=== PATIENT | male | born 1965 | race Caucasian/White ===

== ENCOUNTER 2016-09-27 23:05 | Emergency (ER) | payer OTHER ==
--- NOTE | 2016-09-27 23:27 | EDM.PDOC ---
ED HPI GENERAL MEDICAL PROBLEM - General Chief Complaint: Skin Complaint Stated Complaint: MEDICAL CLEARANCE Time Seen by Provider: 09/27/16 23:22 - History of Present Illness INITIAL COMMENTS - FREE TEXT/NARRATIVE: HISTORY AND PHYSICAL: History of present illness: Patient is 51-year-old white male in custody of law enforcement who presents for medical clearance patient is a small area of erythema with an excoriated area his left lower abdomen for one week he does not recall any specific trauma she may have been related to an insect bite and red slightly swollen and one week no fever chills nausea vomiting or other concerns Review of systems: As per history of present illness and below otherwise all systems reviewed and negative. Past medical history: As per history of present illness and as reviewed below otherwise noncontributory. Surgical history: As per history of present illness and as reviewed below otherwise noncontributory. Social history: No reported history of drug or alcohol abuse. Family history: As per history of present illness and as reviewed below otherwise noncontributory. Physical exam: HEENT: Atraumatic, normocephalic, pupils reactive, negative for conjunctival pallor or scleral icterus, mucous membranes moist, throat clear, neck supple, nontender, trachea midline. Lungs: Clear to auscultation, breath sounds equal bilaterally, chest nontender. Heart: S1S2, regular, negative for clicks, rubs, or JVD. Abdomen: Soft, nondistended, patient is a small area approximately 4 cm in diameter with a central excoriated area of his left lower abdomen mild erythema mild warmth but no significant induration or fluctuance. Negative for masses or hepatosplenomegaly. Negative for costovertebral tenderness. Pelvis: Stable nontender. Genitourinary: Deferred. Rectal: Deferred. Extremities: Atraumatic, negative for cords or calf pain. Neurovascular unremarkable. Neuro: Awake, alert, oriented. Cranial nerves II through XII unremarkable. Cerebellum unremarkable. Motor and sensory unremarkable throughout. Exam nonfocal. Diagnostics: None Therapeutics: None Impression: #1 cellulitis Definitive disposition and diagnosis as appropriate pending reevaluation and review of above. left lower abdomen Pain Score (Numeric/FACES): 5 - Related Data Allergies Allergy/AdvReac Type Severity Reaction Status Date / Time Penicillins Allergy Other Verified 09/27/16 23:13 Home Meds: Home Meds . [No Known Home Meds] 09/27/16 [History] Past Medical History HEENT History: Reports: None Cardiovascular History: Reports: None Respiratory History: Reports: None Gastrointestinal History: Reports: None Genitourinary History: Reports: None Musculoskeletal History: Reports: None Neurological History: Reports: None Psychiatric History: Reports: None Endocrine/Metabolic History: Reports: None Hematologic History: Reports: None Oncologic (Cancer) History: Reports: None Dermatologic History: Reports: None - Infectious Disease History Infectious Disease History: Reports: None Social & Family History - Family History Family Medical History: Noncontributory - Tobacco Use Smoking Status *Q: Current Every Day Smoker Years of Tobacco use: 4 Packs/Tins Daily: 0.5 - Caffeine Use Caffeine Use: Reports: Coffee, Soda - Recreational Drug Use Recreational Drug Use: No ED ROS GENERAL - Review of Systems Review Of Systems: ROS reveals no pertinent complaints other than HPI. ED EXAM, SKIN/RASH Exam: See Below (See dictation) Course - Vital Signs Last Recorded V/S: Last Vital Signs Temp 36.1 C 09/27/16 23:14 Pulse 89 09/27/16 23:14 Resp 16 09/27/16 23:14 BP 131/91 H 09/27/16 23:14 Pulse Ox 96 09/27/16 23:14 Departure - Departure Time of Disposition: 23:26 Disposition: Home, Self-Care 01 Condition: good Clinical Impression: Cellulitis, Medical clearance for incarceration - Discharge Information Forms: ED Department Discharge Additional Instructions: The following information is given to patients seen in the emergency department who are being discharged to home. This information is to outline your options for follow-up care. We provide all patients seen in our emergency department with a follow-up referral. The need for follow-up, as well as the timing and circumstances, are variable depending upon the specifics of your emergency department visit. If you don't have a primary care physician on staff, we will provide you with a referral. We always advise you to contact your personal physician following an emergency department visit to inform them of the circumstance of the visit and for follow-up with them and/or the need for any referrals to a consulting specialist. The emergency department will also refer you to a specialist when appropriate. This referral assures that you have the opportunity for followup care with a specialist. All of these measure are taken in an effort to provide you with optimal care, which includes your followup. Under all circumstances we always encourage you to contact your private physician who remains a resource for coordinating your care. When calling for followup care, please make the office aware that this follow-up is from your recent emergency room visit. If for any reason you are refused follow-up, please contact the [facility] emergency department at and asked to speak to the emergency department charge nurse. Bactrim clindamycin as prescribed followup primary medical doctor in one to 2 days return as needed as discussed
[2016-09-28 01:22] VITALS: BP 123/79
== END 2016-09-27 23:50 | disposition home or self-care (01) ==
LOC: MW.ED 23:05
DX: L03.311 Cellulitis of abdominal wall (principal); F17.210 Nicotine dependence, cigarettes, uncomplicated; Z88.0 Allergy status to penicillin
CPT/HCPCS: 99283

== ENCOUNTER 2019-02-28 22:59 | Emergency (ER) | payer SELFPAY ==
[2019-02-28] MEDS ORDERED: prednisoLONE Soln 15 MG/5 ML UD Cup PO ONE (23:09)
--- NOTE | 2019-02-28 23:14 | EDM.PDOC ---
ED HPI GENERAL MEDICAL PROBLEM - General Stated Complaint: NUMBNESS ON LEFT SIDE Time Seen by Provider: 02/28/19 23:03 - History of Present Illness INITIAL COMMENTS - FREE TEXT/NARRATIVE: HISTORY AND PHYSICAL: History of present illness: Patient 53-year-old male who presents with a concern of left facial paralysis that started yesterday he has no other neurological signs or symptoms he does have some postauricular discomfort on the left also. Review of systems: As per history of present illness and below otherwise all systems reviewed and negative. Past medical history: As per history of present illness and as reviewed below otherwise noncontributory. Surgical history: As per history of present illness and as reviewed below otherwise noncontributory. Social history: No reported history of drug or alcohol abuse. Family history: As per history of present illness and as reviewed below otherwise noncontributory. Physical exam: HEENT: Atraumatic, normocephalic, pupils reactive, negative for conjunctival pallor or scleral icterus, mucous membranes moist, throat clear, neck supple, nontender, trachea midline. Lungs: Clear to auscultation, breath sounds equal bilaterally, chest nontender. Heart: S1S2, regular, negative for clicks, rubs, or JVD. Abdomen: Soft, nondistended, nontender. Negative for masses or hepatosplenomegaly. Negative for costovertebral tenderness. Pelvis: Stable nontender. Genitourinary: Deferred. Rectal: Deferred. Extremities: Atraumatic, negative for cords or calf pain. Neurovascular unremarkable. Neuro: Awake, alert, oriented. Patient noted a peripheral seventh nerve palsy with fairly dense paralysis of his left face. No other neurological signs or symptoms motor and sensory otherwise are normal throughout as is other cranial nerves. Diagnostics: None Therapeutics: Valtrex 500 mg by mouth prednisolone 25 mg by mouth Impression: Thornton's palsy Definitive disposition and diagnosis as appropriate pending reevaluation and review of above. - Related Data Allergies Allergy/AdvReac Type Severity Reaction Status Date / Time Penicillins Allergy Other Verified 09/27/16 23:13 Home Meds: Home Meds . [No Known Home Meds] 09/27/16 [History] Past Medical History HEENT History: Reports: None Cardiovascular History: Reports: None Respiratory History: Reports: None Gastrointestinal History: Reports: None Genitourinary History: Reports: None Musculoskeletal History: Reports: None Neurological History: Reports: None Psychiatric History: Reports: None Endocrine/Metabolic History: Reports: None Hematologic History: Reports: None Oncologic (Cancer) History: Reports: None Dermatologic History: Reports: None - Infectious Disease History Infectious Disease History: Reports: None Social & Family History - Family History Family Medical History: Noncontributory - Caffeine Use Caffeine Use: Reports: Coffee, Soda ED ROS GENERAL - Review of Systems Review Of Systems: ROS reveals no pertinent complaints other than HPI. ED EXAM, GENERAL - Physical Exam Exam: See Below (See dictation) Course - Orders/Labs/Meds Orders: Active Orders 24 hr Category Date Time Status prednisoLONE [OraPred 15 MG/5ML Soln] Med 02/28/19 23:09 Once 20 mg PO ONETIME ONE valACYclovir [Valtrex] Med 02/28/19 23:15 Active 500 mg PO DAILY Medication Orders Prednisolone (Orapred 15 Mg/5ml Soln) 20 mg PO ONETIME ONE Stop: 02/28/19 23:10 Valacyclovir HCl (Valtrex) 500 mg PO DAILY CHYNA Meds: Medications Generic Name Dose Route Start Last Admin Trade Name Freq PRN Reason Stop Dose Admin Prednisolone 20 mg 02/28/19 23:09 Orapred 15 Mg/5ml Soln PO 02/28/19 23:10 ONETIME ONE Valacyclovir HCl 500 mg 02/28/19 23:15 Valtrex PO DAILY CHYNA Departure - Departure Time of Disposition: 23:13 Disposition: Home, Self-Care 01 Condition: Good Clinical Impression: Thornton's palsy - Discharge Information Referrals: PCP,None [Primary Care Provider] - Additional Instructions: The following information is given to patients seen in the emergency department who are being discharged to home. This information is to outline your options for follow-up care. We provide all patients seen in our emergency department with a follow-up referral. The need for follow-up, as well as the timing and circumstances, are variable depending upon the specifics of your emergency department visit. If you don't have a primary care physician on staff, we will provide you with a referral. We always advise you to contact your personal physician following an emergency department visit to inform them of the circumstance of the visit and for follow-up with them and/or the need for any referrals to a consulting specialist. The emergency department will also refer you to a specialist when appropriate. This referral assures that you have the opportunity for followup care with a specialist. All of these measure are taken in an effort to provide you with optimal care, which includes your followup. Under all circumstances we always encourage you to contact your private physician who remains a resource for coordinating your care. When calling for followup care, please make the office aware that this follow-up is from your recent emergency room visit. If for any reason you are refused follow-up, please contact the [facility] emergency department at and asked to speak to the emergency department charge nurse. Valtrex prednisolone as prescribed eyepatch at night natural tears during day as directed follow-up primary medical doctor as discussed return as needed as discussed - My Orders Last 24 Hours: My Active Orders 02/28/19 23:09 prednisoLONE [OraPred 15 MG/5ML Soln] 20 mg PO ONETIME ONE 02/28/19 23:15 valACYclovir [Valtrex] 500 mg PO DAILY - Assessment/Plan Last 24 Hours: My Active Orders 02/28/19 23:09 prednisoLONE [OraPred 15 MG/5ML Soln] 20 mg PO ONETIME ONE 02/28/19 23:15 valACYclovir [Valtrex] 500 mg PO DAILY
[2019-02-28] MEDS ORDERED: valACYclovir 500 MG Tab PO SCH (23:15)
[2019-02-28 23:23] VITALS: BP 152/98; PULSE 93
== END 2019-02-28 23:28 | disposition home or self-care (01) ==
LOC: MW.ED 22:59
DX: G51.0 Bell's palsy (principal); Z88.0 Allergy status to penicillin
CPT/HCPCS: 99284; A9270; 99282

== ENCOUNTER 2019-09-20 19:32 | Observation (INO) | payer SELFPAY ==
--- NOTE | 2019-09-20 19:46 | EDM.PDOC ---
ED HPI GENERAL MEDICAL PROBLEM - General Chief Complaint: Abdominal Pain Stated Complaint: ABDOMINAL PAIN Time Seen by Provider: 09/20/19 19:39 Source of Information: Reports: Patient History Limitations: Reports: No Limitations - History of Present Illness INITIAL COMMENTS - FREE TEXT/NARRATIVE: This is a 54-year-old gentleman with left lower quadrant pain starting at 7:30 PM 48 hours ago. Patient denies chills and fever, diarrhea, nausea and vomiting. Still denies constipation or any new to the area. Patient has never had diverticulitis or any surgery on his abdomen. States the pain is a 7 out of 10 when he lays down and when he walks or moves it goes up to a 9 or 10 out of 10. 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 Denies: Confusion, Chest Pain, Cough, Diaphoresis, Fever/Chills, Headaches, Malaise, Rash, Seizure, Shortness of Breath, Syncope Abdomen Pain Score (Numeric/FACES): 7 - Related Data Allergies Allergy/AdvReac Type Severity Reaction Status Date / Time Penicillins Allergy Other Verified 09/20/19 19:44 Home Meds: Home Meds . [No Known Home Meds] 09/27/16 [History] Past Medical History HEENT History: Reports: None Cardiovascular History: Reports: None Respiratory History: Reports: None Gastrointestinal History: Reports: None Genitourinary History: Reports: None Musculoskeletal History: Reports: None Neurological History: Reports: None Psychiatric History: Reports: None Endocrine/Metabolic History: Reports: None Hematologic History: Reports: None Oncologic (Cancer) History: Reports: None Dermatologic History: Reports: None - Infectious Disease History Infectious Disease History: Reports: None - Past Surgical History HEENT Surgical History: Reports: Oral Surgery Social & Family History - Family History Family Medical History: Noncontributory - Caffeine Use Caffeine Use: Reports: Coffee, Soda ED ROS GENERAL - Review of Systems Review Of Systems: See Below Constitutional: Reports: No Symptoms HEENT: Reports: No Symptoms Respiratory: Reports: No Symptoms Cardiovascular: Reports: No Symptoms Endocrine: Reports: No Symptoms GI/Abdominal: Reports: Abdominal Pain, Anorexia : Reports: No Symptoms Musculoskeletal: Reports: No Symptoms Skin: Reports: No Symptoms Neurological: Reports: No Symptoms Psychiatric: Reports: No Symptoms Hematologic/Lymphatic: Reports: No Symptoms Immunologic: Reports: No Symptoms ED EXAM, GI/ABD - Physical Exam Exam: See Below Exam Limited By: No Limitations General Appearance: Alert, WD/WN, No Apparent Distress Eyes: Bilateral: Normal Appearance Ears: Normal External Exam, Normal Canal, Hearing Grossly Normal, Normal TMs Nose: Normal Inspection, Normal Mucosa, No Blood Throat/Mouth: Normal Inspection, Normal Lips, Normal Teeth, Normal Gums, Normal Oropharynx, No Airway Compromise Head: Atraumatic, Normocephalic Neck: Normal Inspection, Supple, Non-Tender, Full Range of Motion Respiratory/Chest: No Respiratory Distress, Lungs Clear, Normal Breath Sounds, No Accessory Muscle Use, Chest Non-Tender Cardiovascular: Normal Peripheral Pulses, Regular Rate, Rhythm, No Edema, No Gallop, No JVD, No Murmur, No Rub GI/Abdominal Exam: Guarding, Rebound, Tender (Left lower quadrant pain on palpation) (Male) Exam: Deferred Rectal (Males) Exam: Deferred Back Exam: Normal Inspection, Full Range of Motion Extremities: Normal Inspection, Normal Range of Motion, Non-Tender, No Pedal Edema, Normal Capillary Refill Neurological: Alert, Oriented, CN II-XII Intact, Normal Cognition, Normal Gait, Normal Reflexes, No Motor/Sensory Deficits Psychiatric: Normal Affect, Normal Mood Skin Exam: Warm, Dry, Intact, Normal Color, No Rash Lymphatic: No Adenopathy Course - Vital Signs Text/Narrative:: 54-year-old gentleman presents to the emergency room with left lower quadrant pain. Patient found to have colitis on CT scan. Patient has a white count of 14,000 with severe pain. Patient given pain medication and antibiotics in the emergency room. Patient will be admitted for observation IV fluids antibiotics and pain medication. I talked to the hospitalist who will admit the patient. Last Recorded V/S: Last Vital Signs Temp 98.5 F 09/20/19 21:15 Pulse 94 09/20/19 21:15 Resp 18 09/20/19 21:15 BP 120/87 05/16/20 21:15 Pulse Ox 96 09/20/19 21:15 - Orders/Labs/Meds Orders: Active Orders 24 hr Category Date Time Status metroNIDAZOLE/Normal Saline [Flagyl 500 MG in NS 100 ML Med 09/20/19 21:25 Active ] 500 mg Premix Bag 1 bag IV ONETIME Medication Orders Metronidazole 500 mg/ Premix 100 mls @ 100 mls/hr IV ONETIME ONE Stop: 09/20/19 22:24 Last Admin: 09/20/19 21:34 Dose: 100 mls/hr Labs: Laboratory Tests 09/20/19 09/20/19 09/20/19 Range/Units 19:50 19:50 20:45 WBC 14.61 H (4.0-11.0) K/uL RBC 6.19 H (4.50-5.90) M/uL Hgb 18.0 H (13.0-17.0) g/dL Hct 54.1 H (38.0-50.0) % MCV 87.4 (80.0-98.0) fL MCH 29.1 (27.0-32.0) pg MCHC 33.3 (31.0-37.0) g/dL RDW Std Deviation 41.4 (28.0-62.0) fl RDW Coeff of Denise 13 (11.0-15.0) % Plt Count 335 (150-400) K/uL MPV 9.90 (7.40-12.00) fL Neut % (Auto) 77.7 (48.0-80.0) % Lymph % (Auto) 14.9 L (16.0-40.0) % [place] % (Auto) 6.6 (0.0-15.0) % Eos % (Auto) 0.6 (0.0-7.0) % Baso % (Auto) 0.2 (0.0-1.5) % Neut # (Auto) 11.4 H (1.4-5.7) K/uL Lymph # (Auto) 2.2 (0.6-2.4) K/uL [place]aine # (Auto) 1.0 H (0.0-0.8) K/uL Eos # (Auto) 0.1 (0.0-0.7) K/uL Baso # (Auto) 0.0 (0.0-0.1) K/uL Nucleated RBC % 0.0 /100WBC Nucleated RBCs # 0 K/uL Sodium 136 (136-148) mmol/L Potassium 3.9 (3.5-5.1) mmol/L Chloride 102 (98-107) mmol/L Carbon Dioxide 26.1 (21.0-32.0) mmol/L BUN 14 (7.0-18.0) mg/dL Creatinine 1.3 (0.8-1.3) mg/dL Est Cr Clr Drug Dosing 60.03 mL/min Estimated GFR (MDRD) 57.3 ml/min Glucose 106 (74-106) mg/dL Calcium 8.7 (8.5-10.1) mg/dL Total Bilirubin 0.3 (0.2-1.0) mg/dL AST 15 (15-37) IU/L ALT 21 (14-63) IU/L Alkaline Phosphatase 105 (46-116) U/L Total Protein 8.0 (6.4-8.2) g/dL Albumin 3.9 (3.4-5.0) g/dL Globulin 4.1 H (2.6-4.0) g/dL Albumin/Globulin Ratio 1.0 (0.9-1.6) Urine Color YELLOW Urine Appearance CLEAR Urine pH 5.0 (5.0-8.0) Ur Specific [place] 1.020 (1.001-1.035) Urine Protein NEGATIVE (NEGATIVE) mg/dL Urine Glucose (UA) NEGATIVE (NEGATIVE) mg/dL Urine Ketones NEGATIVE (NEGATIVE) mg/dL Urine Occult Blood NEGATIVE (NEGATIVE) Urine Nitrite NEGATIVE (NEGATIVE) Urine Bilirubin NEGATIVE (NEGATIVE) Urine Urobilinogen 0.2 (<2.0) EU/dL Ur Leukocyte Esterase NEGATIVE (NEGATIVE) Meds: Medications Generic Name Dose Route Start Last Admin Trade Name Freq PRN Reason Stop Dose Admin Metronidazole 500 mg/ Premix 100 mls @ 100 mls/hr 09/20/19 21:25 09/20/19 21: 34 IV 09/20/19 22:24 100 mls/hr ONETIME ONE Administration Discontinued Medications Generic Name Dose Route Start Last Admin Trade Name Freq PRN Reason Stop Dose Admin Sodium Chloride 1,000 mls @ 1,000 mls/hr 09/20/19 19:55 09/20/19 19:59 Normal Saline IV 09/20/19 20:54 1,000 mls/hr .Bolus ONE Administration Iopamidol 100 ml 09/20/19 20:49 09/20/19 20:49 Isovue-370 (76%) IVPUSH 09/20/19 20:50 100 ml ONETIME ONE Administration Morphine Sulfate 6 mg 09/20/19 19:55 09/20/19 19:59 Morphine IVPUSH 09/20/19 19:56 6 mg ONETIME ONE Administration Ondansetron HCl 4 mg 09/20/19 19:56 09/20/19 19:59 Zofran IVPUSH 09/20/19 19:57 4 mg ONETIME ONE Administration Departure - Departure Time of Disposition: 22:03 Disposition: Refer to Observation Condition: Good Clinical Impression: Colitis, Leukocytosis, unspecified, Abdominal pain - Discharge Information Referrals: PCP,None [Primary Care Provider] - Forms: ED Department Discharge Sepsis Event Note - Focused Exam Vital Signs: Vital Signs Temp Pulse Resp BP Pulse Ox 09/20/19 21:15 98.5 F 94 18 120/87 96 09/20/19 19:40 99 F 118 H 18 137/95 H 98 Date Exam was Performed: 09/20/19 Time Exam was Performed: 22:00 - My Orders Last 24 Hours: My Active Orders 09/20/19 21:25 metroNIDAZOLE/Normal Saline [Flagyl 500 MG in NS 100 ML] 500 mg Premix Bag 1 bag IV ONETIME - Assessment/Plan Last 24 Hours: My Active Orders 09/20/19 21:25 metroNIDAZOLE/Normal Saline [Flagyl 500 MG in NS 100 ML] 500 mg Premix Bag 1 bag IV ONETIME
[2019-09-20] MEDS ORDERED: Morphine 10 MG/ML Syringe IVPUSH ONE (19:55)
[2019-09-20] MEDS ORDERED: Sodium Chloride 0.9% 1,000 ML IV ONE (19:55)
[2019-09-20] MEDS ORDERED: Ondansetron 4 MG/2 ML SDV IVPUSH ONE (19:56)
[2019-09-20 20:20] LABS: CARBON DIOXIDE,CO2 26.1 mmol/L (21.0-32.0); POTASSIUM,K 3.9 mmol/L (3.5-5.1)
[2019-09-20] MEDS ORDERED: Iopamidol 755 Mg/ML 100 ML Bottle IVPUSH ONE (20:49)
--- NOTE | 2019-09-20 21:07 | CT ---
CT abdomen and pelvis Technique: Multiple axial sections were obtained from above the dome of the diaphragm inferiorly through the pubic symphysis. Intravenous contrast was utilized. No oral contrast has been given. Findings: Slight atelectasis is seen within both lung bases. Several small low-density findings are seen within the liver. Largest abnormality has Hounsfield unit measurements of a cyst which measures about 1.6 cm in size. Other findings measure less than 1 cm and are too small to characterize by Hounsfield unit measurements but most likely represent additional cysts. Spleen appears within normal limits. Adrenal glands show no nodule. Pancreas is normal. Kidneys show symmetric contrast enhancement without hydronephrosis or mass. Aorta shows no aneurysm. Pancreas is within normal limits. No retroperitoneal adenopathy is seen. Mild inflammatory change is noted near the junction of the descending and sigmoid colon. No diverticuli are seen in this area and findings most likely represent so-called epiploic appendagitis. No other inflammatory change is seen. Appendix is seen which is normal in size. No free fluid is seen. No pelvic mass or adenopathy is seen. Minimal fat-containing bilateral inguinal hernias are noted. Bone window settings were reviewed. Moderate compression deformity seen within L1 which is believed to be old. Mild scattered degenerative changes is also noted within the spine. No acute osseous finding is appreciated. Impression: 1. Mild inflammatory change near the junction of the descending and sigmoid colon. As mentioned above, no diverticuli are seen in this area and findings most likely relate to so-called epiploic appendagitis. 2. Other findings believed to be incidental and nonacute as described above. Diagnostic code #3 This report was dictated in MDT
[2019-09-20] MEDS ORDERED: metroNIDAZOLE/Normal Saline 500 MG in Premix Bag 1 BAG IV ONE (21:25)
[2019-09-20] MEDS ORDERED: Morphine 10 MG/ML Syringe IVPUSH PRN (22:35)
[2019-09-20] MEDS ORDERED: Ondansetron 4 MG/2 ML SDV IVPUSH PRN (22:35)
[2019-09-20] MEDS ORDERED: Albuterol/Ipratropium 3.0-0.5 MG/3 ML Neb Soln NEB PRN (22:35)
[2019-09-20] MEDS: Sodium Chloride 0.9% 1,000 ML IV SCH (23:36)
[2019-09-20] MEDS: Pantoprazole 40 MG Vial IV SCH (23:38)
[2019-09-21 05:46] LABS: BLOOD UREA NITROGEN,BUN 10 mg/dL (7.0-18.0); CARBON DIOXIDE,CO2 27.7 mmol/L (21.0-32.0); CHLORIDE,CL 106 mmol/L (98-107); GLUCOSE RANDOM 95 mg/dL (74-106); POTASSIUM,K 4.3 mmol/L (3.5-5.1); SODIUM,NA 139 mmol/L (136-148)
[2019-09-21] MEDS: metroNIDAZOLE/Normal Saline 500 MG in Premix Bag 1 BAG IV SCH ×3 (06:07→21:55)
[2019-09-21] MEDS: Sodium Chloride 0.9% 1,000 ML IV SCH ×2 (08:24→19:54)
--- NOTE | 2019-09-21 08:48 | PCM.HP.2 ---
<Caroline Alonso - Last Filed: 09/21/19 11:42> H&P History of Present Illness - General Date of Service: 09/21/19 Admit Problem/Dx: Admission Diagnosis/Problem Admission Diagnosis/Problem Colitis presumed to be due to infection - History of Present Illness Initial Comments - Free Text/Narative: The patient is a 54 year old male with no significant past medical history who presented to the ER with 3 day history of sharp, non radiating LLQ pain. Denies fever/chills, nausea/vomiting, constipation/diarrhea, or black/bloody stool. Originally just thought he pulled a muscle. Has never had anything like this before. In the ER, work up revealed leukocytosis of 14.6, electrolytes wnl, elevated Lipase of 457. UA was negative. CT of ab/pelvis reveal mild inflammation at junction between descending and sigmoid and epiploic appendagitis. In the ER he was started on Flagyl and given morphine, Zofran, and IVF. PCP- none Abdomen Pain Score (Numeric/FACES): 5 - Related Data Allergies/Adverse Reactions: Allergies Allergy/AdvReac Type Severity Reaction Status Date / Time Penicillins Allergy Other Verified 09/20/19 22:47 Home Medications: Home Meds Ciprofloxacin HCl [Cipro] 500 mg PO Q12H 6 Days #12 tablet 09/22/19 [Rx] metroNIDAZOLE [Flagyl] 500 mg PO Q8H 6 Days #18 tab 09/22/19 [Rx] Past Medical History HEENT History: Reports: None Cardiovascular History: Reports: None Respiratory History: Reports: None Gastrointestinal History: Reports: None Genitourinary History: Reports: None Musculoskeletal History: Reports: None Neurological History: Reports: None Psychiatric History: Reports: None Endocrine/Metabolic History: Reports: None Insulin Pump Model and Apprenticeship Training Representative: None Hematologic History: Reports: None Immunologic History: Reports: None Oncologic (Cancer) History: Reports: None Dermatologic History: Reports: None - Infectious Disease History Infectious Disease History: Reports: None - Past Surgical History HEENT Surgical History: Reports: Oral Surgery Social & Family History - Family History Family Medical History: Noncontributory - Tobacco Use Smoking Status *Q: Current Every Day Smoker Years of Tobacco use: 6 Packs/Tins Daily: 0.5 - Caffeine Use Caffeine Use: Reports: Coffee, Soda - Recreational Drug Use Recreational Drug Use: Yes Drug Use in Last 12 Months: Yes Recreational Drug Type: Reports: Marijuana/Hashish Recreational Drug Use Frequency: Rarely H&P Review of Systems - Review of Systems: Review Of Systems: See Below General: Reports: No Symptoms HEENT: Reports: No Symptoms Cardiovascular: Reports: No Symptoms Gastrointestinal: Reports: Abdominal Pain. Denies: Black Stool, Bloody Stool, Constipation, Diarrhea, Nausea, Vomiting Genitourinary: Reports: No Symptoms Musculoskeletal: Reports: No Symptoms Skin: Reports: No Symptoms Psychiatric: Reports: No Symptoms Neurological: Reports: No Symptoms Hematologic/Lymphatic: Reports: No Symptoms Immunologic: Reports: No Symptoms Exam - Exam Exam: See Below - Vital Signs Vital Signs: Last Vital Signs Temp 97.6 F 09/21/19 03:55 Pulse 79 09/21/19 03:55 Resp 18 09/21/19 03:55 BP 140/79 09/21/19 03:55 Pulse Ox 97 09/21/19 03:55 Weight: 94 kg - Exam General: Alert, Oriented, Cooperative HEENT: Conjunctiva Clear, EOMI, Pupils Equal, Pupils Reactive Neck: Supple, Trachea Midline Lungs: Clear to Auscultation, Normal Respiratory Effort Cardiovascular: Regular Rate, Regular Rhythm GI/Abdominal Exam: Normal Bowel Sounds, Soft, Tender (LUQ and LLQ) Extremities: No Pedal Edema Skin: Warm, Dry, Intact Psychiatric: Alert, Normal Affect, Normal Mood - Patient Data Lab Results Last 24 hrs: Laboratory Results - last 24 hr 09/20/19 09/20/19 09/20/19 Range/Units 19:50 19:50 19:50 WBC 14.61 H (4.0-11.0) K/uL RBC 6.19 H (4.50-5.90) M/uL Hgb 18.0 H (13.0-17.0) g/dL Hct 54.1 H (38.0-50.0) % MCV 87.4 (80.0-98.0) fL MCH 29.1 (27.0-32.0) pg MCHC 33.3 (31.0-37.0) g/dL RDW Std Deviation 41.4 (28.0-62.0) fl RDW Coeff of Denise 13 (11.0-15.0) % Plt Count 335 (150-400) K/uL MPV 9.90 (7.40-12.00) fL Neut % (Auto) 77.7 (48.0-80.0) % Lymph % (Auto) 14.9 L (16.0-40.0) % Morgan % (Auto) 6.6 (0.0-15.0) % Eos % (Auto) 0.6 (0.0-7.0) % Baso % (Auto) 0.2 (0.0-1.5) % Neut # (Auto) 11.4 H (1.4-5.7) K/uL Lymph # (Auto) 2.2 (0.6-2.4) K/uL Morgan # (Auto) 1.0 H (0.0-0.8) K/uL Eos # (Auto) 0.1 (0.0-0.7) K/uL Baso # (Auto) 0.0 (0.0-0.1) K/uL Nucleated RBC % 0.0 /100WBC Nucleated RBCs # 0 K/uL Sodium 136 (136-148) mmol/L Potassium 3.9 (3.5-5.1) mmol/L Chloride 102 (98-107) mmol/L Carbon Dioxide 26.1 (21.0-32.0) mmol/L BUN 14 (7.0-18.0) mg/dL Creatinine 1.3 (0.8-1.3) mg/dL Est Cr Clr Drug Dosing 60.03 mL/min Estimated GFR (MDRD) 57.3 ml/min Glucose 106 (74-106) mg/dL Calcium 8.7 (8.5-10.1) mg/dL Phosphorus (2.6-4.7) mg/dL Magnesium (1.8-2.4) mg/dL Total Bilirubin 0.3 (0.2-1.0) mg/dL AST 15 (15-37) IU/L ALT 21 (14-63) IU/L Alkaline Phosphatase 105 (46-116) U/L Total Protein 8.0 (6.4-8.2) g/dL Albumin 3.9 (3.4-5.0) g/dL Globulin 4.1 H (2.6-4.0) g/dL Albumin/Globulin Ratio 1.0 (0.9-1.6) Lipase 457 H (73-393) U/L Urine Color Urine Appearance Urine pH (5.0-8.0) Ur Specific Council (1.001-1.035) Urine Protein (NEGATIVE) mg/dL Urine Glucose (UA) (NEGATIVE) mg/dL Urine Ketones (NEGATIVE) mg/dL Urine Occult Blood (NEGATIVE) Urine Nitrite (NEGATIVE) Urine Bilirubin (NEGATIVE) Urine Urobilinogen (<2.0) EU/dL Ur Leukocyte Esterase (NEGATIVE) 09/20/19 09/21/19 09/21/19 Range/Units 20:45 05:10 05:10 WBC 10.72 (4.0-11.0) K/uL RBC 5.22 (4.50-5.90) M/uL Hgb 14.9 (13.0-17.0) g/dL Hct 46.2 (38.0-50.0) % MCV 88.5 (80.0-98.0) fL MCH 28.5 (27.0-32.0) pg MCHC 32.3 (31.0-37.0) g/dL RDW Std Deviation 42.7 (28.0-62.0) fl RDW Coeff of Denise 13 (11.0-15.0) % Plt Count 284 (150-400) K/uL MPV 9.70 (7.40-12.00) fL Neut % (Auto) 69.4 (48.0-80.0) % Lymph % (Auto) 19.4 (16.0-40.0) % Morgan % (Auto) 9.4 (0.0-15.0) % Eos % (Auto) 1.6 (0.0-7.0) % Baso % (Auto) 0.2 (0.0-1.5) % Neut # (Auto) 7.4 H (1.4-5.7) K/uL Lymph # (Auto) 2.1 (0.6-2.4) K/uL Morgan # (Auto) 1.0 H (0.0-0.8) K/uL Eos # (Auto) 0.2 (0.0-0.7) K/uL Baso # (Auto) 0.0 (0.0-0.1) K/uL Nucleated RBC % 0.0 /100WBC Nucleated RBCs # 0 K/uL Sodium 139 (136-148) mmol/L Potassium 4.3 (3.5-5.1) mmol/L Chloride 106 (98-107) mmol/L Carbon Dioxide 27.7 (21.0-32.0) mmol/L BUN 10 (7.0-18.0) mg/dL Creatinine 1.1 (0.8-1.3) mg/dL Est Cr Clr Drug Dosing 73.41 mL/min Estimated GFR (MDRD) > 60.0 ml/min Glucose 95 (74-106) mg/dL Calcium 7.7 L (8.5-10.1) mg/dL Phosphorus 3.7 (2.6-4.7) mg/dL Magnesium 1.8 (1.8-2.4) mg/dL Total Bilirubin (0.2-1.0) mg/dL AST (15-37) IU/L ALT (14-63) IU/L Alkaline Phosphatase (46-116) U/L Total Protein (6.4-8.2) g/dL Albumin (3.4-5.0) g/dL Globulin (2.6-4.0) g/dL Albumin/Globulin Ratio (0.9-1.6) Lipase (73-393) U/L Urine Color YELLOW Urine Appearance CLEAR Urine pH 5.0 (5.0-8.0) Ur Specific Council 1.020 (1.001-1.035) Urine Protein NEGATIVE (NEGATIVE) mg/dL Urine Glucose (UA) NEGATIVE (NEGATIVE) mg/dL Urine Ketones NEGATIVE (NEGATIVE) mg/dL Urine Occult Blood NEGATIVE (NEGATIVE) Urine Nitrite NEGATIVE (NEGATIVE) Urine Bilirubin NEGATIVE (NEGATIVE) Urine Urobilinogen 0.2 (<2.0) EU/dL Ur Leukocyte Esterase NEGATIVE (NEGATIVE) 09/21/19 Range/Units 05:10 WBC (4.0-11.0) K/uL RBC (4.50-5.90) M/uL Hgb (13.0-17.0) g/dL Hct (38.0-50.0) % MCV (80.0-98.0) fL MCH (27.0-32.0) pg MCHC (31.0-37.0) g/dL RDW Std Deviation (28.0-62.0) fl RDW Coeff of Denise (11.0-15.0) % Plt Count (150-400) K/uL MPV (7.40-12.00) fL Neut % (Auto) (48.0-80.0) % Lymph % (Auto) (16.0-40.0) % Morgan % (Auto) (0.0-15.0) % Eos % (Auto) (0.0-7.0) % Baso % (Auto) (0.0-1.5) % Neut # (Auto) (1.4-5.7) K/uL Lymph # (Auto) (0.6-2.4) K/uL Morgan # (Auto) (0.0-0.8) K/uL Eos # (Auto) (0.0-0.7) K/uL Baso # (Auto) (0.0-0.1) K/uL Nucleated RBC % /100WBC Nucleated RBCs # K/uL Sodium (136-148) mmol/L Potassium (3.5-5.1) mmol/L Chloride (98-107) mmol/L Carbon Dioxide (21.0-32.0) mmol/L BUN (7.0-18.0) mg/dL Creatinine (0.8-1.3) mg/dL Est Cr Clr Drug Dosing mL/min Estimated GFR (MDRD) ml/min Glucose (74-106) mg/dL Calcium (8.5-10.1) mg/dL Phosphorus (2.6-4.7) mg/dL Magnesium (1.8-2.4) mg/dL Total Bilirubin (0.2-1.0) mg/dL AST (15-37) IU/L ALT (14-63) IU/L Alkaline Phosphatase (46-116) U/L Total Protein (6.4-8.2) g/dL Albumin (3.4-5.0) g/dL Globulin (2.6-4.0) g/dL Albumin/Globulin Ratio (0.9-1.6) Lipase 190 (73-393) U/L Urine Color Urine Appearance Urine pH (5.0-8.0) Ur Specific Council (1.001-1.035) Urine Protein (NEGATIVE) mg/dL Urine Glucose (UA) (NEGATIVE) mg/dL Urine Ketones (NEGATIVE) mg/dL Urine Occult Blood (NEGATIVE) Urine Nitrite (NEGATIVE) Urine Bilirubin (NEGATIVE) Urine Urobilinogen (<2.0) EU/dL Ur Leukocyte Esterase (NEGATIVE) Result Diagrams: 09/21/19 05:10 09/21/19 05:10 Sepsis Event Note - Evaluation Sepsis Screening Result: No Definite Risk - Focused Exam Vital Signs: Vital Signs Temp Temp Pulse Resp BP Pulse Ox 09/21/19 03:55 97.6 F 79 18 140/79 97 09/20/19 23:00 97.1 F 82 19 140/80 98 09/20/19 22:18 88 18 121/73 96 09/20/19 21:15 98.5 F 94 18 120/87 96 Date Exam was Performed: 09/21/19 Time Exam was Performed: 11:42 Problem List Initiated/Reviewed/Updated: Yes Orders Last 24hrs: Active Orders 24 hr Category Date Time Status Admission Status [Patient Status] [ADT] Stat ADT 09/20/19 22:03 Active Ambulate [RC] ASDIRECTED Care 09/20/19 22:35 Active Antiembolic Devices [RC] PER UNIT ROUTINE Care 09/20/19 22:37 Active Oxygen Therapy [RC] PRN Care 09/20/19 22:35 Active Pulse Oximetry [RC] PRN Care 09/20/19 22:36 Active RT Aerosol Therapy [RC] ASDIRECTED Care 09/20/19 22:39 Active VTE/DVT Education [RC] PER UNIT ROUTINE Care 09/20/19 22:35 Active Vital Signs [RC] Q4H Care 09/20/19 22:35 Active Nothing per Oral Now Diet [DIET] Diet 09/20/19 Dinner Active CULTURE BLOOD [BC] Stat Lab 09/20/19 19:50 Received CULTURE BLOOD [BC] Stat Lab 09/20/19 22:55 Received Albuterol/Ipratropium [DuoNeb 3.0-0.5 MG/3 ML] Med 09/20/19 22:35 Active 3 ml NEB Q4HRRT PRN Morphine Med 09/21/19 08:30 Active 2 mg IVPUSH Q4H PRN Ondansetron [Zofran] Med 09/20/19 22:35 Active 4 mg IVPUSH Q4H PRN Pantoprazole [ProTONIX IV] Med 09/20/19 22:45 Active 40 mg IV DAILY Sodium Chloride 0.9% [Normal Saline] 1,000 ml Med 09/20/19 22:45 Active IV ASDIRECTED metroNIDAZOLE/Normal Saline [Flagyl 500 MG in NS 100 ML Med 09/21/19 06:00 Active ] 500 mg Premix Bag 1 bag IV Q8H Blood Culture x2 Reflex Set [OM.PC] Stat Ot 09/20/19 22:41 Ordered Sequential Compression Device [OM.PC] Per Unit Routine Ot 09/20/19 22:36 Ordered Medication Orders Albuterol/Ipratropium (Duoneb 3.0-0.5 Mg/3 Ml) 3 ml NEB Q4HRRT PRN PRN Reason: Shortness Of Breath/wheezing Sodium Chloride (Normal Saline) 1,000 mls @ 125 mls/hr IV ASDIRECTED [facility] Last Admin: 09/21/19 08:24 Dose: 125 mls/hr Infusion: 09/21/19 07:36 Dose: 125 mls/hr Admin: 09/20/19 23:36 Dose: 125 mls/hr Metronidazole 500 mg/ Premix 100 mls @ 100 mls/hr IV Q8H [facility] Last Admin: 09/21/19 06:07 Dose: 100 mls/hr Morphine Sulfate (Morphine) 2 mg IVPUSH Q4H PRN PRN Reason: Pain (severe 7-10) Ondansetron HCl (Zofran) 4 mg IVPUSH Q4H PRN PRN Reason: Nausea/Vomiting Pantoprazole Sodium (Protonix Iv) 40 mg IV DAILY [facility] Last Admin: 09/20/19 23:38 Dose: 40 mg Assessment/Plan Comment:: 1. Admit for observation 2. Code status- full 3. Vitals per routine 4. I/Os per routine 5. Diet- NPO 6. DVT prophylaxis with Lovenox 7. Colitis- White count resolved but patient still having abdominal pain. Continue Flagyl and add Cipro. Continue IVF. Morphine prn pain, zofran prn nausea/vomiting. Advance diet to clear. Blood cultures pending. Lactate wnl. Will need outpatient colonoscopy. 8. Elevated lipase- resolved <Suzy Wilder - Last Filed: 09/23/19 11:35> H&P History of Present Illness - General Admit Problem/Dx: Admission Diagnosis/Problem Admission Diagnosis/Problem Colitis presumed to be due to infection Exam - Vital Signs Vital Signs: Last Vital Signs Temp 36.9 C 09/22/19 07:51 Pulse 67 09/22/19 07:51 Resp 16 09/22/19 07:51 BP 119/76 09/22/19 07:51 Pulse Ox 96 09/22/19 07:51 - Patient Data Result Diagrams: 09/22/19 05:55 09/22/19 05:55 Isaac Results Last 24 hrs: Microbiology 09/20/19 22:55 Aerobic Blood Culture - Preliminary Blood - Venous - Lab Draw NO GROWTH AFTER 2 DAYS Anaerobic Blood Culture - Preliminary NO GROWTH AFTER 2 DAYS 09/20/19 19:50 Aerobic Blood Culture - Preliminary Blood - Venous NO GROWTH AFTER 2 DAYS Anaerobic Blood Culture - Preliminary NO GROWTH AFTER 2 DAYS Orders Last 24hrs: Active Orders 24 hr Category Date Time Status Ready for Discharge [RC] PER UNIT ROUTINE Care 09/22/19 11:23 Active Assessment/Plan Comment:: I performed a history and physical exam of the patient and discussed management with resident. I have reviewed the residents note and agree with documented findings and plan unless otherwise specified in my note.
[2019-09-21] MEDS: Morphine 2 MG/ML SYRINGE IVPUSH PRN ×2 (09:24→18:52)
[2019-09-21] MEDS: Enoxaparin 40 MG/0.4 ML Syringe SUBCUT SCH (09:26)
[2019-09-21] MEDS: Pantoprazole 40 MG Vial IV SCH (09:27)
[2019-09-21] MEDS: Ciprofloxacin in D5W 400 MG in Premix Bag 1 BAG IV SCH ×2 (12:20)
[2019-09-21] MEDS ORDERED: Pantoprazole 40 MG in Sodium Chloride 0.9% 10 ML IV SCH (22:45)
[2019-09-22] MEDS: Ciprofloxacin in D5W 400 MG in Premix Bag 1 BAG IV SCH ×2 (00:31)
[2019-09-22] MEDS: Sodium Chloride 0.9% 1,000 ML IV SCH (05:30)
[2019-09-22] MEDS: metroNIDAZOLE/Normal Saline 500 MG in Premix Bag 1 BAG IV SCH (05:32)
[2019-09-22] MEDS: Morphine 2 MG/ML SYRINGE IVPUSH PRN ×2 (05:36→09:41)
[2019-09-22 06:29] LABS: BLOOD UREA NITROGEN,BUN 9 mg/dL (7.0-18.0); CARBON DIOXIDE,CO2 28.4 mmol/L (21.0-32.0); CHLORIDE,CL 106 mmol/L (98-107); GLUCOSE RANDOM 91 mg/dL (74-106); POTASSIUM,K 4.1 mmol/L (3.5-5.1); SODIUM,NA 140 mmol/L (136-148)
[2019-09-22 07:53] VITALS: BP 119/76; PULSE 67
[2019-09-22] MEDS ORDERED: Pantoprazole 40 MG in Sodium Chloride 0.9% 10 ML IV SCH (09:00)
[2019-09-22] MEDS: Enoxaparin 40 MG/0.4 ML Syringe SUBCUT SCH (09:39)
--- NOTE | 2019-09-22 11:25 | PCM.DCSUM1 ---
<Caroline Alonso - Last Filed: 09/22/19 11:24> Discharge Summary - Hospital Course HPI Initial Comments: Admission Date: 09/20/19 Discharge Date: 09/22/19 Admission Diagnosis: 1. Colitis 2. Elevated lipase Discharge Diagnosis: 1. Colitis- resolved 2. Elevated lipase- resolved Procedures: None Consults: None Hospital Course: The patient is a 54 year old male with no significant past medical history who presented to the ER with 3 day history of LLQ pain. In the ER, work up revealed leukocytosis of 14.6, electrolytes wnl, elevated Lipase of 457. UA was negative. CT of ab/pelvis reveal mild inflammation at junction between descending and sigmoid and epiploic appendagitis. In the ER he was started on Flagyl and given morphine, Zofran, and IVF. He was admitted to the medical floor. By the next day his white count and lipase had resolved. As his pain improved, his diet was advanced. By day of discharge, symptoms had resolved, he was tolerating an oral diet, and he was requesting discharge Disposition: Home Discharge Condition: vitals stable, tolerating oral diet, ambulating without difficulty, symptom improvement Discharge Instructions: regular diet as tolerated, activity as tolerated, take medications as prescribed. Symptoms to report to physician include fever/chills , chest pain, shortness of breath, abdominal pain, erythema, drainage/discharge , or not improving as expected. Discharge Medications: Ciprofloxacin HCl [Cipro] 500 mg PO Q12H metroNIDAZOLE [Flagyl] 500 mg PO Q8H Follow-up: 1. PCP 2. General surgery for outpatient colonoscopy - Discharge Data Discharge Date: 09/22/19 Discharge Disposition: Home, Self-Care 01 Condition: Fair - Referral to Home Health Primary Care Physician: PCP None - Patient Instructions Diet: GI Soft/Low Residue/Low Fiber Activity: As Tolerated Showering/Bathing: May Shower Notify Provider of: Fever, Increased Pain, Swelling and Redness, Drainage, Nausea and/or Vomiting Other/Special Instructions: Additional symptoms include chest pain, shortness of breath, or abdominal pain. - Discharge Plan *PRESCRIPTION DRUG MONITORING PROGRAM REVIEWED*: No *COPY OF PRESCRIPTION DRUG MONITORING REPORT IN PATIENT DEJA: No Prescriptions/Med Rec: Ciprofloxacin HCl [Cipro] 500 mg PO Q12H 6 Days #12 tablet metroNIDAZOLE [Flagyl] 500 mg PO Q8H 6 Days #18 tab Home Medications: Home Meds Ciprofloxacin HCl [Cipro] 500 mg PO Q12H 6 Days #12 tablet 09/22/19 [Rx] metroNIDAZOLE [Flagyl] 500 mg PO Q8H 6 Days #18 tab 09/22/19 [Rx] Patient Handouts: Colitis, Ciprofloxacin tablets, Metronidazole tablets or capsules Referrals: Gabby Avelar [employer] [Nurse Practitioner] - 10/02/19 9:45 am - Discharge Summary/Plan Comment DC Time >30 min.: No - Patient Data Vitals - Most Recent: Last Vital Signs Temp 98.4 F 09/22/19 07:51 Pulse 67 09/22/19 07:51 Resp 16 09/22/19 07:51 BP 119/76 09/22/19 07:51 Pulse Ox 96 09/22/19 07:51 Weight - Most Recent: 94 kg I&O - Last 24 hours: Intake & Output 09/21/19 09/22/19 09/22/19 22:59 06:59 14:59 Intake Total 2509 1502 Output Total 1500 500 Balance 1009 1002 Lab Results - Last 24 hrs: Laboratory Results - last 24 hr 09/22/19 09/22/19 Range/Units 05:55 05:55 WBC 9.71 (4.0-11.0) K/uL RBC 5.07 (4.50-5.90) M/uL Hgb 14.6 (13.0-17.0) g/dL Hct 44.6 (38.0-50.0) % MCV 88.0 (80.0-98.0) fL MCH 28.8 (27.0-32.0) pg MCHC 32.7 (31.0-37.0) g/dL RDW Std Deviation 40.5 (28.0-62.0) fl RDW Coeff of Denise 13 (11.0-15.0) % Plt Count 275 (150-400) K/uL MPV 9.20 (7.40-12.00) fL Neut % (Auto) 68.7 (48.0-80.0) % Lymph % (Auto) 18.6 (16.0-40.0) % Sharp % (Auto) 11.0 (0.0-15.0) % Eos % (Auto) 1.4 (0.0-7.0) % Baso % (Auto) 0.3 (0.0-1.5) % Neut # (Auto) 6.7 H (1.4-5.7) K/uL Lymph # (Auto) 1.8 (0.6-2.4) K/uL Sharp # (Auto) 1.1 H (0.0-0.8) K/uL Eos # (Auto) 0.1 (0.0-0.7) K/uL Baso # (Auto) 0.0 (0.0-0.1) K/uL Nucleated RBC % 0.0 /100WBC Nucleated RBCs # 0 K/uL Sodium 140 (136-148) mmol/L Potassium 4.1 (3.5-5.1) mmol/L Chloride 106 (98-107) mmol/L Carbon Dioxide 28.4 (21.0-32.0) mmol/L BUN 9 (7.0-18.0) mg/dL Creatinine 1.2 (0.8-1.3) mg/dL Est Cr Clr Drug Dosing 67.29 mL/min Estimated GFR (MDRD) > 60.0 ml/min Glucose 91 (74-106) mg/dL Calcium 8.0 L (8.5-10.1) mg/dL BHAVYA Results - Last 24 hrs: Microbiology 09/20/19 22:55 Aerobic Blood Culture - Preliminary Blood - Venous - Lab Draw NO GROWTH AFTER 1 DAY Anaerobic Blood Culture - Preliminary NO GROWTH AFTER 1 DAY 09/20/19 19:50 Aerobic Blood Culture - Preliminary Blood - Venous NO GROWTH AFTER 1 DAY Anaerobic Blood Culture - Preliminary NO GROWTH AFTER 1 DAY Med Orders - Current: Current Medications Albuterol/Ipratropium (Duoneb 3.0-0.5 Mg/3 Ml) 3 ml NEB Q4HRRT PRN PRN Reason: Shortness Of Breath/wheezing Enoxaparin Sodium (Lovenox) 40 mg SUBCUT Q24H [facility] Last Admin: 09/22/19 09:39 Dose: 40 mg Sodium Chloride (Normal Saline) 1,000 mls @ 125 mls/hr IV ASDIRECTED [facility] Last Admin: 09/22/19 05:30 Dose: 125 mls/hr Metronidazole 500 mg/ Premix 100 mls @ 100 mls/hr IV Q8H [facility] Last Admin: 09/22/19 05:32 Dose: 100 mls/hr Ciprofloxacin/Dextrose 400 mg/ (Premix) 200 mls @ 200 mls/hr IV Q12H [facility] Last Admin: 09/22/19 00:31 Dose: 200 mls/hr Pantoprazole Sodium 40 mg/ (Sodium Chloride) 10 mls @ 300 mls/hr IV DAILY [facility] Last Admin: 09/22/19 09:37 Dose: 300 mls/hr Morphine Sulfate (Morphine) 2 mg IVPUSH Q4H PRN PRN Reason: Pain (severe 7-10) Last Admin: 09/22/19 09:41 Dose: 2 mg Ondansetron HCl (Zofran) 4 mg IVPUSH Q4H PRN PRN Reason: Nausea/Vomiting Discontinued Medications Sodium Chloride (Normal Saline) 1,000 mls @ 1,000 mls/hr IV .Bolus ONE Stop: 09/20/19 20:54 Last Admin: 09/20/19 19:59 Dose: 1,000 mls/hr Metronidazole 500 mg/ Premix 100 mls @ 100 mls/hr IV ONETIME ONE Stop: 09/20/19 22:24 Last Admin: 09/20/19 21:34 Dose: 100 mls/hr Pantoprazole Sodium 40 mg/ (Sodium Chloride) 10 mls @ 300 mls/hr IV Q24H [facility] Iopamidol (Isovue-370 (76%)) 100 ml IVPUSH ONETIME ONE Stop: 09/20/19 20:50 Last Admin: 09/20/19 20:49 Dose: 100 ml Morphine Sulfate (Morphine) 6 mg IVPUSH ONETIME ONE Stop: 09/20/19 19:56 Last Admin: 09/20/19 19:59 Dose: 6 mg Morphine Sulfate (Morphine) 2 mg IVPUSH Q4H PRN PRN Reason: Pain (severe 7-10) Stop: 09/21/19 22:37 Last Admin: 09/21/19 04:08 Dose: 2 mg Ondansetron HCl (Zofran) 4 mg IVPUSH ONETIME ONE Stop: 09/20/19 19:57 Last Admin: 09/20/19 19:59 Dose: 4 mg Pantoprazole Sodium (Protonix Iv) 40 mg IV DAILY [facility] Last Admin: 09/21/19 09:27 Dose: 40 mg <Suzy Wilder - Last Filed: 09/23/19 11:35> Discharge Summary - Hospital Course HPI Initial Comments: I have seen and evaluated the patient and agree with the residents note unless specified in my note - Referral to Home Health Primary Care Physician: PCP None - Patient Data Vitals - Most Recent: Last Vital Signs Temp 36.9 C 09/22/19 07:51 Pulse 67 09/22/19 07:51 Resp 16 09/22/19 07:51 BP 119/76 09/22/19 07:51 Pulse Ox 96 09/22/19 07:51 BHAVYA Results - Last 24 hrs: Microbiology 09/20/19 22:55 Aerobic Blood Culture - Preliminary Blood - Venous - Lab Draw NO GROWTH AFTER 2 DAYS Anaerobic Blood Culture - Preliminary NO GROWTH AFTER 2 DAYS 09/20/19 19:50 Aerobic Blood Culture - Preliminary Blood - Venous NO GROWTH AFTER 2 DAYS Anaerobic Blood Culture - Preliminary NO GROWTH AFTER 2 DAYS Med Orders - Current: Current Medications Discontinued Medications Albuterol/Ipratropium (Duoneb 3.0-0.5 Mg/3 Ml) 3 ml NEB Q4HRRT PRN PRN Reason: Shortness Of Breath/wheezing Enoxaparin Sodium (Lovenox) 40 mg SUBCUT Q24H [facility] Last Admin: 09/22/19 09:39 Dose: 40 mg Sodium Chloride (Normal Saline) 1,000 mls @ 1,000 mls/hr IV .Bolus ONE Stop: 09/20/19 20:54 Last Admin: 09/20/19 19:59 Dose: 1,000 mls/hr Metronidazole 500 mg/ Premix 100 mls @ 100 mls/hr IV ONETIME ONE Stop: 09/20/19 22:24 Last Admin: 09/20/19 21:34 Dose: 100 mls/hr Sodium Chloride (Normal Saline) 1,000 mls @ 125 mls/hr IV ASDIRECTED [facility] Last Admin: 09/22/19 05:30 Dose: 125 mls/hr Metronidazole 500 mg/ Premix 100 mls @ 100 mls/hr IV Q8H [facility] Last Admin: 09/22/19 05:32 Dose: 100 mls/hr Ciprofloxacin/Dextrose 400 mg/ (Premix) 200 mls @ 200 mls/hr IV Q12H [facility] Last Admin: 09/22/19 00:31 Dose: 200 mls/hr Pantoprazole Sodium 40 mg/ (Sodium Chloride) 10 mls @ 300 mls/hr IV Q24H [facility] Pantoprazole Sodium 40 mg/ (Sodium Chloride) 10 mls @ 300 mls/hr IV DAILY [facility] Last Admin: 09/22/19 09:37 Dose: 300 mls/hr Iopamidol (Isovue-370 (76%)) 100 ml IVPUSH ONETIME ONE Stop: 09/20/19 20:50 Last Admin: 09/20/19 20:49 Dose: 100 ml Morphine Sulfate (Morphine) 6 mg IVPUSH ONETIME ONE Stop: 09/20/19 19:56 Last Admin: 09/20/19 19:59 Dose: 6 mg Morphine Sulfate (Morphine) 2 mg IVPUSH Q4H PRN PRN Reason: Pain (severe 7-10) Stop: 09/21/19 22:37 Last Admin: 09/21/19 04:08 Dose: 2 mg Morphine Sulfate (Morphine) 2 mg IVPUSH Q4H PRN PRN Reason: Pain (severe 7-10) Last Admin: 09/22/19 09:41 Dose: 2 mg Ondansetron HCl (Zofran) 4 mg IVPUSH ONETIME ONE Stop: 09/20/19 19:57 Last Admin: 09/20/19 19:59 Dose: 4 mg Ondansetron HCl (Zofran) 4 mg IVPUSH Q4H PRN PRN Reason: Nausea/Vomiting Pantoprazole Sodium (Protonix Iv) 40 mg IV DAILY [facility] Last Admin: 09/21/19 09:27 Dose: 40 mg
== END 2019-09-22 12:30 | disposition home or self-care (01) ==
LOC: MW.ED 19:32 → MW.MS 22:27
PROVIDERS: ADMIT Student in an Organized Health Care Education/Training Program; ATTEND Student in an Organized Health Care Education/Training Program
DX: K52.9 Noninfective gastroenteritis and colitis, unspecified (principal); R74.8 Abnormal levels of other serum enzymes; D72.829 Elevated white blood cell count, unspecified; F17.210 Nicotine dependence, cigarettes, uncomplicated; Z88.0 Allergy status to penicillin
CPT/HCPCS: 36415; 74177; 80048; 80053; 81003; 83605; 83690; 83735; 84100; 85025; 87040; 96365; 96375; 99285; C9113; J0744; J1650; J2270; J2405; J3490; J7030; J7050; Q9967; 96361; 96366; 96367; 96372; 96376; 99283; G0378

== ENCOUNTER 2022-10-08 05:56 | Emergency (ER) | payer SELFPAY ==
[2022-10-08 06:10] VITALS: BP 163/94; PULSE 83
[2022-10-08] MEDS ORDERED: Clindamycin HCl 150 MG Cap PO STA (06:14)
== END 2022-10-08 06:23 | disposition home or self-care (01) ==
LOC: MW.ED 05:56
DX: L03.115 Cellulitis of right lower limb (principal); Z88.0 Allergy status to penicillin
CPT/HCPCS: 99283; A9270

== ENCOUNTER 2023-05-23 17:22 | Emergency (ER) | payer SELFPAY ==
[2023-05-23 18:49] LABS: CORONAVIRUS COVID-19 NAA NEGATIVE (NEGATIVE); INFLUENZA A NAA NEGATIVE (NEGATIVE); INFLUENZA B NAA NEGATIVE (NEGATIVE)
[2023-05-23 19:03] VITALS: BP 138/94; PULSE 102
== END 2023-05-23 19:03 | disposition home or self-care (01) ==
LOC: MW.ED 17:22
DX: J40 Bronchitis, not specified as acute or chronic (principal); Z20.822 Contact with and (suspected) exposure to COVID-19; Z88.0 Allergy status to penicillin
CPT/HCPCS: 0240U; 71045; 99285; 99283

== ENCOUNTER 2024-09-29 15:48 | Emergency (ER) | payer SELFPAY ==
[2024-09-29 16:12] VITALS: BP 147/87; PULSE 89
[2024-09-29] MEDS: Cyclobenzaprine 10 MG Tab PO ONE (17:32)
[2024-09-29] MEDS: Ibuprofen 600 MG Tab PO ONE (17:33)
[2024-09-29] MEDS ORDERED: Acetaminophen 500 MG Tab PO ONE (18:03)
== END 2024-09-29 18:57 | disposition home or self-care (01) ==
LOC: MW.ED 15:48
DX: S22.31XA Fracture of one rib, right side, initial encounter for closed fracture (principal); S89.92XA Unspecified injury of left lower leg, initial encounter; M54.6 Pain in thoracic spine; Z88.0 Allergy status to penicillin; Z79.899 Other long term (current) drug therapy; Z75.3 Unavailability and inaccessibility of health-care facilities; Y04.0XXA Assault by unarmed brawl or fight, initial encounter
CPT/HCPCS: 71046; 73562; 99284; A9270